=== PATIENT | female | born 1995 | race Caucasian/White ===

== ENCOUNTER 2017-07-06 17:19 | Observation (INO) | payer BC ==
[~2017-07-06] VITALS: Ht 149.9 cm; Wt 53.0 kg
[2017-07-06] MEDS ORDERED: SODIUM CHLORIDE FLUSH 10ML SYR IVF ONE ×2 (17:30→19:00)
[2017-07-06 18:04] LABS: MEAN CORPUSCULAR HEMOGLOBIN 29.7 pg (27.0-34.8); MEAN CORPUSCULAR HGB CONC 33.6 g/dL (32.4-35.8); MEAN CORPUSCULAR VOLUME 88.5 fL (80-100); MEAN PLATELET VOLUME 8.8 fL (7.4-10.4); PLATELET COUNT 338 x10^3/uL (130-400); RED BLOOD COUNT 4.93 x10^6/uL (3.82-5.3); RED CELL DISTRIBUTION WIDTH 13.1 % (9.6-15.2)
[2017-07-06 18:31] LABS: MICROSCOPIC INDICATED
[2017-07-06 18:38] LABS: CULTURE INDICATED? YES
[2017-07-06 18:50] LABS: MD YES
[2017-07-06] MEDS ORDERED: SODIUM CHLORIDE 0.9% 1,000 ML IV ONE ×2 (18:53→18:59)
[2017-07-06 18:55] LABS: BAND#(MANUAL) 0.47 x10^3/uL; BANDS%(MANUAL) 2 % (0-7); LYMPH#(MANUAL) 1.89 x10^3/uL (1-6.1); LYMPHS% (MANUAL) 8 % (22-44); MONOS#(MANUAL) 1.65 x10^3/uL (0.3-2.7); MONOS% (MANUAL) 7 % (2-9); SEG#(MANUAL) 19.59 x10^3/uL (1.8-8); SEGS% (MANUAL) 83 % (42-75)
[2017-07-06 18:56] LABS: <PLATELET ESTIMATE> ADEQUATE; <PLT MORPHOLOGY> NORMAL PLT MORPH; <RBC MORPHOLOGY> NORMAL
[2017-07-06] MEDS ORDERED: ONDANSETRON 2MG/ML, 2ML IVPush PRN ×3 (19:00→22:30)
[2017-07-06] MEDS ORDERED: CEFOTETAN PMX 1GM/50ML 50 ML IV ONE (19:00)
[2017-07-06] MEDS ORDERED: SODIUM CHLORIDE FLUSH 10ML SYR IVF PRN (19:00)
[2017-07-06] MEDS ORDERED: MORPHINE SULFATE 4 MG/ML, 1ML IVPush PRN ×3 (19:00→22:30)
[2017-07-06] MEDS ORDERED: ONDANSETRON 2MG/ML, 2ML IVPush ONE (19:00)
[2017-07-06] MEDS ORDERED: CEFOTETAN PMX 1GM/50ML 50 ML ONE ×3 (19:05→21:31)
[2017-07-06] MEDS ORDERED: MORPHINE SULFATE 4 MG/ML, 1ML ONE (19:05)
[2017-07-06] MEDS ORDERED: BUPIVACAINE/PF 0.5% ONE (20:38)
[2017-07-06] MEDS ORDERED: EPINEPHRINE 1 MG/ML, 1ML ONE (20:38)
[2017-07-06] MEDS ORDERED: FENTANYL PF 100 MCG/2ML ONE ×2 (21:30→22:23)
[2017-07-06] MEDS ORDERED: PROPOFOL 10 MG/ML, 20ML ONE (21:31)
[2017-07-06] MEDS ORDERED: ROCURONIUM 10MG/ML,5ML ONE (21:31)
[2017-07-06] MEDS ORDERED: MIDAZOLAM 1 MG/ML, 2ML ONE (21:31)
[2017-07-06] MEDS ORDERED: NEOSTIGMINE 1 MG/ML, 10ML ONE (21:35)
[2017-07-06] MEDS ORDERED: KETOROLAC 30 MG/1 ML ONE ×2 (21:35→21:58)
[2017-07-06] MEDS ORDERED: GLYCOPYRROLATE 0.2MG/1ML, 5ML ONE (21:35)
[2017-07-06] MEDS ORDERED: SUCCINYLCHOLINE 20 MG/ML, 10ML ONE (21:35)
[2017-07-06] MEDS ORDERED: BUPIVACAINE/PF-EPI 0.5% 1:200K IM ONE (21:58)
[2017-07-06] MEDS ORDERED: PROMETHAZINE 25 MG/ML, 1ML IV PRN (22:00)
[2017-07-06] MEDS ORDERED: METOPROLOL 1 MG/ML, 5ML IV PRN (22:00)
[2017-07-06] MEDS ORDERED: hydrALAzine 20 MG/ML, 1ML IV PRN (22:00)
[2017-07-06] MEDS ORDERED: MEPERIDINE/PF 25MG/0.5ML IVPush PRN (22:00)
[2017-07-06] MEDS ORDERED: morphine SULFATE 10 MG/ML, 1ML IV PRN (22:00)
[2017-07-06] MEDS ORDERED: EPHEDRINE 50 MG/ML, 1ML IVPush PRN (22:00)
[2017-07-06] MEDS ORDERED: HYDROcodone/APAP 7.5-325MG/15ML UDC PO PRN (22:00)
[2017-07-06] MEDS ORDERED: LABETALOL 5MG/ML, 20ML IV PRN (22:00)
[2017-07-06] MEDS ORDERED: ALBUTEROL SULFATE 2.5 MG/3 ML NPPB PRN (22:00)
[2017-07-06] MEDS ORDERED: HYDROcodone/APAP 7.5-325MG/15ML UDC ONE (22:23)
[2017-07-06] MEDS ORDERED: ONDANSETRON 2MG/ML, 2ML ONE (22:23)
[2017-07-06] MEDS: FENTANYL PF 100 MCG/2ML IV PRN ×3 (22:27→22:50)
[2017-07-06] MEDS ORDERED: OXYcodone 5 MG/5 ML ORAL.SOL UDC PO PRN (22:30)
[2017-07-06] MEDS ORDERED: CEFOTETAN PMX 1GM/50ML 50 ML IVPB SCH (22:30)
[2017-07-06] MEDS: POTASSIUM CHLORIDE 20 MEQ in D5%-0.45% NACL 1,000 ML IV SCH (23:45)
[2017-07-07] MEDS: KETOROLAC 30 MG/1 ML IV PRN ×2 (02:47→09:12)
[2017-07-07 02:52] VITALS: BP 111/71
[2017-07-07 03:21] VITALS: BP 132/71
[2017-07-07 05:32] LABS: BASOPHILS # (AUTO) 0.01 x10^3/uL (0-0.3); BASOPHILS % (AUTO) 0 % (0-1); EOSINOPHILS % (AUTO) 0 % (1-7); LYMPHOCYTES # (AUTO) 0.67 x10^3/uL (1-6.1); LYMPHOCYTES % (AUTO) 4 % (22-44); MD NO; MEAN CORPUSCULAR HEMOGLOBIN 28.7 pg (27.0-34.8); MEAN CORPUSCULAR HGB CONC 32.5 g/dL (32.4-35.8); MEAN CORPUSCULAR VOLUME 88.5 fL (80-100); MEAN PLATELET VOLUME 8.8 fL (7.4-10.4); MONOCYTES # (AUTO) 0.33 x10^3/uL (0-1.4); MONOCYTES % (AUTO) 2 % (2-9); NEUTROPHILS # (AUTO) 15.72 x10^3/uL (1.8-8.0); NEUTROPHILS % (AUTO) 94 % (42-75); PLATELET COUNT 346 x10^3/uL (130-400); RED BLOOD COUNT 4.11 x10^6/uL (3.82-5.3)
[2017-07-07 05:33] LABS: ALBUMIN 3.3 g/dL (3.4-5.0); ANION GAP 10 mmol/L (5-15); CALCIUM 8.2 mg/dL (8.5-10.1); CHLORIDE 104 mmol/L (98-107)
[2017-07-07 05:35] LABS: CREATININE 0.74 mg/dL (0.55-1.02)
[2017-07-07 07:12] VITALS: BP 97/58
[2017-07-07] MEDS ORDERED: ENOXAPARIN 40 MG/0.4 ML SQ SCH (09:00)
[2017-07-07] MEDS ORDERED: OXYC5CAP2 PO (10:31)
[2017-07-07] MEDS ORDERED: ONDA4TAB7 PO (10:32)
[2017-07-07] MEDS: POTASSIUM CHLORIDE 20 MEQ in D5%-0.45% NACL 1,000 ML IV SCH (11:37)
[2017-07-07 12:25] VITALS: BP 92/54
== END 2017-07-07 13:12 | disposition home or self-care (01) ==
LOC: ED 18:54 → INTOOBSV 18:59 → EDIP 18:59 → ED 19:04 → 4NOR 23:00 → DCLOUNGE 07-07 13:00
PROVIDERS: ADMIT Surgery; ATTEND Surgery
DX: K35.3 Acute appendicitis with localized peritonitis (principal); K38.1 Appendicular concretions
CPT/HCPCS: 36415; 44970; 76857; 80048; 81001; 82040; 84703; 85025; 87086; 88304; 96365; 96372; 96375; 96376; 99285; G0378; J0171; J0330; J1650; J1885; J2250; J2405; J2704; J2710; J3010; J3480; J3490; J7030; S0074